=== PATIENT | female | born 1990 | race African-American/Black ===

== ENCOUNTER 2021-10-28 14:11 | Emergency (ER) | payer MEDICAID, OTHER ==
[~2021-10-28] VITALS: Ht 162.6 cm; Wt 140.0 kg
[2021-10-28 16:10] VITALS: BP 126/62
[2021-10-28] MEDS ORDERED: IBUPROFEN 800 MG TAB PO ONE (17:00)
[2021-10-28] MEDS ORDERED: IBUP800T27 PO (17:05)
== END 2021-10-28 17:11 | disposition home or self-care (01) ==
LOC: ER 14:11
DX: S92.415A Nondisplaced fracture of proximal phalanx of left great toe, initial encounter for closed fracture (principal); W18.00XA Striking against unspecified object with subsequent fall, initial encounter; Y93.89 Activity, other specified; Y92.89 Other specified places as the place of occurrence of the external cause; Y99.8 Other external cause status
CPT/HCPCS: 73630